=== PATIENT | female | born 1995 | race Two or more races ===

== ENCOUNTER 2019-05-11 08:25 | Emergency (ER) | payer SELFPAY ==
[~2019-05-11] VITALS: Ht 154.9 cm; Wt 59.0 kg
--- NOTE | 2019-05-11 08:39 | NUR ---
PT TO ED BED 07. C/O MESTRUAL CRAMPING W/ NAUSEA AND VOMITING THAT STARTED SINCE LAST NIGHT. VSS. AWAITING MD MCFADDEN.
--- NOTE | 2019-05-11 08:51 | NUR ---
DR LOCKE AT BEDSIDE FOR EVAL.
[2019-05-11] MEDS ORDERED: IV NS 0.9% 1,000 ML BAG IV ONE (09:00)
[2019-05-11] MEDS ORDERED: HYDROMORPHONE INJ 2 MG/ML DISP.SYRIN IV ONE (09:00)
[2019-05-11] MEDS ORDERED: ONDANSETRON HCL/PF 4 MG/2 ML VIAL IVP ONE (09:00)
[2019-05-11] MEDS ORDERED: ONDANSETRON HCL/PF 4 MG/2 ML VIAL ONE (09:09)
[2019-05-11] MEDS ORDERED: HYDROMORPHONE 1 MG/1 ML DISP.SYRIN ONE (09:10)
--- NOTE | 2019-05-11 09:54 | NUR ---
Patient discharged to home in stable condition. Written and verbal after care instructions given. Patient verbalizes understanding of instruction.IV removed. Catheter intact and site benign. Pressure and 4x4 applied to site. No bleeding noted.
[2019-05-11 09:55] VITALS: BP 128/76
== END 2019-05-11 09:56 | disposition home or self-care (01) ==
LOC: ER 08:25
DX: N94.6 Dysmenorrhea, unspecified (principal); R11.2 Nausea with vomiting, unspecified
CPT/HCPCS: 36415; 84702; 96361; 96374; 96375; 99283; J1170; J2405; J7030